=== PATIENT | male | born 1955 | race Caucasian/White ===

== ENCOUNTER 2017-10-31 05:30 | Inpatient (IN) | payer OTHER ==
[2017-10-22 11:11] LABS: HEMATOCRIT 49.7 % (42.0-52.0); HEMOGLOBIN 17.2 gm/dL (14.0-18.0); MCH 31.1 pg (26.0-34.0); MCHC 34.5 g/dL (28.0-37.0); MCV 90.1 fL (80.0-100.0); RBC 5.52 mil/uL (4.50-6.00); RDW 12.8 % (10.5-14.5); WBC 6.9 thou/uL (4.0-11.0)
[2017-10-22 11:16] LABS: ALBUMIN 4.2 g/dL (3.4-5.0); CREATININE 1.3 mg/dL (0.7-1.3); POTASSIUM 4.1 mmol/L (3.5-5.1)
[2017-10-22 11:17] LABS: URINE BILIRUBIN NEGATIVE (Negative); URINE BLOOD NEGATIVE (Negative); URINE CLARITY CLEAR; URINE COLOR YELLOW; URINE GLUCOSE-RANDOM* NEGATIVE (Negative); URINE KETONES NEGATIVE (Negative); URINE LEUKOCYTES-REFLEX NEGATIVE (Negative); URINE NITRITE-REFLEX NEGATIVE (Negative); URINE PROTEIN (DIPSTICK) NEGATIVE (Negative); URINE SPECIFIC GRAVITY <= 1.005 (1.005-1.035); URINE UROBILINOGEN 0.2 E.U./dl (0.2-1.0)
[2017-10-22 11:18] LABS: PROTIME 10.3 Seconds (9.3-11.4)
[2017-10-31] VITALS (9 sets, daily range): BP systolic 104–147; BP diastolic 55–89
[~2017-10-31] VITALS: Ht 177.8 cm; Wt 98.9 kg
--- NOTE | ~2017-10-31 | EKG ---
[address] [place] [address] ELECTROCARDIOGRAM REPORT Name: DOMITILA JEFFERY Room #: PRE IN .R.#: [id number] Admission: Attend Phys: Arturo Erazo MD Discharge: Date of : 53 Report #: [id number] THIS REPORT FOR: //name// [facility] Test Date: 2017-10-22 Test Time: 10:43:07 Pat Name: DOMITILA JEFFERY Department: Room: Gender: Cyber Systems Administrator: Adair FELDER : 1955 Requested By: Arturo Erazo Order Number: [id number] MD: Timmy Alcala Measurements Intervals [place] Rate: 86 P: 29 ND: 181 QRS: -44 QRSD: 107 T: 1 QT: 366 QTc: 438 Interpretive Statements Sinus rhythm Left anterior fascicular block Abnormal R-wave progression, late transition Compared to ECG 09/08/2012 09:56:18 No significant change was found Electronically Signed On 10-23-2017 7:49:21 FRONT CLERK by Timmy Alcala [email or web address] <ELECTRONICALLY SIGNED> By: Timmy Alcala MD, [facility] 10/23/17 0749 1043 1043 Timmy Alcala MD, FAC /EPI
--- NOTE | ~2017-10-31 | O ---
[facility] [place] [address] [address] OPERATIVE REPORT Name: DOMITILA JEFFERY Room #: 402-P [facility] IN M.R.#: [id number] Admission: 10/31/17 Attend Phys: Arturo Erazo MD Discharge: Date of : 53 Report #: [id number] THIS REPORT FOR: //name// CC: [facility] physician/PCP SAMANTHA Erazo DATE OF SERVICE: 10/31/2017 PREOPERATIVE DIAGNOSIS: Left knee medial compartment osteoarthritis. POSTOPERATIVE DIAGNOSIS: Left knee medial compartment osteoarthritis. PROCEDURE: Left knee medial compartment arthroplasty. SURGEON: Arturo Erazo MD. LIGHTING TECHNICIAN: Ruthann Mckoy PA-C. INDICATIONS FOR PROCEDURE: Throughout the procedure, extensive retraction and manipulation of the knee was required. This was afforded to me by my doctor assistant. ANESTHESIA: LMA with adductor canal block. IMPLANTS: Biomet Cotton twin peg size medium femur, a size D tibia and a size 4 polyethylene. TOURNIQUET TIME: 60 minutes. ESTIMATED BLOOD LOSS: 20 mL. COMPLICATIONS: None. SPECIMENS: None. CONDITION UPON LEAVING THE OPERATING ROOM: Stable. INDICATIONS FOR PROCEDURE: The patient is a 61-year-old gentleman with severe left knee medial compartment osteoarthritis. He had failed conservative treatment for this and after discussion with him, he elected for left unicompartmental knee arthroplasty. DESCRIPTION OF PROCEDURE: Risks, benefits, alternatives, complications were discussed in detail with the patient including but not limited to risk of anesthesia, risk of damage to nerves, arteries, blood vessels, risk for infection, bleeding, risk for continued knee pain, need for reoperation. [facility] [address] [place] [address] OPERATIVE REPORT Name: DOMITILA JEFFERY Room #: 402-P [facility] IN M.R.#: [id number] Admission: 10/31/17 Attend Phys: Arturo Erazo MD Discharge: Date of : 53 Report #: [id number] Informed consent was obtained from the patient. Left knee was appropriately marked in the preoperative holding area. Adductor canal block placed by anesthesia. IV Ancef was given for preoperative antibiotics. He was brought to the operating room and placed in supine position on the operating room table. LMA anesthesia was induced without complication. Tourniquet was placed on the left thigh. Left lower extremity was prepped and draped in normal sterile fashion. Timeout was performed properly identifying the patient and procedure as well as instrumentation. All in the operating room were in agreement. Left lower extremity was exsanguinated, tourniquet was inflated. Tourniquet time was 60 minutes. Standard medial approach of the knee was made with 10 blade through the skin. Dissection was taken down sharply to the fascia and deep flaps were developed medially and laterally. Fresh 10 blade was used to make a medial parapatellar arthrotomy and the knee was inspected. There was a severe medial compartment osteoarthritis. 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 It was decided to proceed with unicompartmental arthroplasty. The anterior horn of the meniscus was removed sharply. Fat pad was removed sharply. The tibial resection guide was pinned in place in length to the femur with a 4 mm spacer. The tibial resection was made. This was sized and found to be a size D. Size D trial was placed, and the flexion gap was measured to be a 4. Drill was used to gain access to the canal of the femur and an intramedullary sharan was placed in the femur. The femoral twin peg guide was then placed and connected to the IM sharan and drill holes for the twin pegs were made. Posterior femoral resection was made and the zero spigot was placed. The femur was milled. Femoral trial was placed and the tibial trial was placed. The flexion gap was 4. The extension gap was zero. This is the 4 spigot that was placed and the femur was milled again. This balanced the knee well. The anterior chamfer was then removed from the femur and the keel cut for the tibia was made and a keeled tibial trial and femoral trial was placed. The knee was then trialed with a size 3 polyethylene and then a 4 and found to have a better fit with the 4. Trial components were removed. Bony ends were thoroughly irrigated with normal saline. Final size D tibia and size medium femur were cemented in place using standard cementation techniques. While the cement cured, a periarticular injection consisting of morphine, ropivacaine, epinephrine and Toradol was placed in the knee capsular tissues. After the cement cured, a final size 4 polyethylene was placed. The fascia was closed. Tourniquet was deflated. Hemostasis was obtained with Bovie cautery. Skin was closed with 2-0 Vicryl, 3-0 Monocryl. Dermabond and Aquacel dressing was applied. The patient tolerated this procedure well and went to recovery room under care of anesthesia postoperatively. <ELECTRONICALLY SIGNED> By: Arturo Erazo MD 10/31/17 1739 [id number] Arturo Erazo MD /nt
[~2017-10-31 05:30] MED LIST: ALEVE220 M1 PO; CELEBREX 200 M200 MG; FLONASE 0.05%50 MCG NASAL; LOSARTAN-HCTZ1 EAC2 PO; OMEPRAZOLE 20 M20 M1 PO; PERCOCET 10-321 EACH; PRAVACHOL80 MG PO; TYLENOL325 MG PO; VALACYCLOVIR500 MG PO; XARELTO10 M1
[2017-10-31] MEDS ORDERED: TRI-BUFFERED A325 M1 PO (17:35)
[2017-10-31] MEDS ORDERED: MS CONTIN15 MG PO (17:35)
[2017-10-31] MEDS ORDERED: PERCOCET PO (17:35)
[2017-10-31] MEDS ORDERED: NEURONTIN 300300 M1 PO (17:36)
[2017-11-01 02:54] VITALS: BP 115/78
[2017-11-01 03:45] LABS: HEMATOCRIT 39.9 % (42.0-52.0); HEMOGLOBIN 13.6 gm/dL (14.0-18.0); MCHC 34.2 g/dL (28.0-37.0); MCV 90.5 fL (80.0-100.0); RBC 4.41 mil/uL (4.50-6.00); WBC 13.1 thou/uL (4.0-11.0)
[2017-11-01 07:15] VITALS: BP 102/63
[2017-11-01 10:15] VITALS: BP 102/63
[2017-11-01 11:22] VITALS: BP 102/63
== END 2017-11-01 10:55 | disposition home or self-care (01) | DRG 470 ==
LOC: TBA 05:30 → PRE 05:37 → 4N 12:05 → PRE 12:11 → 4N 11-01 10:55
PROVIDERS: Orthopaedic Surgery
PROC: 0SRD0J9 Replacement of Left Knee Joint with Synthetic Substitute, Cemented, Open Approach (ICD-10-PCS; principal; 2017-10-31)
DX: M17.12 Unilateral primary osteoarthritis, left knee (principal); I10 Essential (primary) hypertension; S83.242A Other tear of medial meniscus, current injury, left knee, initial encounter; Z96.651 Presence of right artificial knee joint; Z79.899 Other long term (current) drug therapy; Z81.1 Family history of alcohol abuse and dependence; Z90.49 Acquired absence of other specified parts of digestive tract
CPT/HCPCS: 10790; 50010; 50101; 50415; 51130; 51225; 51771; 52056; 52256; 53078; 53370; 54118; 55262; 56527; 56528; 57095; 62110; 62900; 64042; 70005